=== PATIENT | male | born 1985 | race African-American/Black ===

== ENCOUNTER 2019-03-17 01:40 | Emergency (ER) | payer SELFPAY ==
[2019-03-17] MEDS ORDERED: Ketorolac Tromethamine 30 MG/ML VIAL ONE (01:51)
--- NOTE | 2019-03-17 08:11 | RAD ---
RADIOGRAPH LEFT KNEE 4 VIEWS: DATE: 03/17/2019. TIME: 2:01 a.m. HISTORY: A 33-year-old male with traumatic left knee pain. COMPARISON: None. FINDINGS: There is a transversely oriented fracture across the lower pole of the patella resulting in superior retraction of the superior fragment. The distal femur, proximal tibia, and proximal fibula demonstra te no acute fracture or dislocation. No moderate-sized or large joint effusion is identified. IMPRESSION: Acute, traumatic, very displaced fracture of the patella. POS: [facility]
== END 2019-03-17 02:17 | disposition home or self-care (01) ==
LOC: ERS 01:40
DX: S82.032A Displaced transverse fracture of left patella, initial encounter for closed fracture (principal); X50.1XXA Overexertion from prolonged static or awkward postures, initial encounter
CPT/HCPCS: 96372; J1885

== ENCOUNTER 2019-03-28 05:42 | Observation (INO) | payer SELFPAY ==
[2019-03-28] MEDS ORDERED: Midazolam HCl 2 mg/2 ml Vial ONE (06:26)
[2019-03-28] MEDS ORDERED: Fentanyl 100 MCG/2 ML VIAL ONE ×3 (06:27→09:30)
[2019-03-28] MEDS ORDERED: Dexamethasone 4 mg/ml Vial ONE (06:28)
--- NOTE | 2019-03-28 09:16 | RAD ---
Left knee 2 views: HISTORY: Fracture of the patella FINDINGS: 2 spot fluoroscopic intraoperative images of the left knee demonstrate interval reduction and interna l fixation of the distracted patellar fracture noted on the exam of 03/17/2019.
[2019-03-28] MEDS ORDERED: Acetaminophen/Codeine 30-300mg Tablet ONE (11:29)
[2019-03-28] MEDS ORDERED: Bupivacaine HCl 0.5%/Epinephrine 1:200,000/PF 30 ml Vial ONE (13:49)
[2019-03-28 14:01] VITALS: BMI 29.7
[2019-03-28] MEDS ORDERED: Lidocaine 1% PF 5 ML VIAL ONE (14:23)
[2019-03-28] MEDS ORDERED: Ondansetron PF 4 MG/2 ML Vial ONE (14:23)
[2019-03-28] MEDS ORDERED: Ketorolac Tromethamine 30 MG/ML VIAL ONE (14:23)
[2019-03-28] MEDS ORDERED: PROPOFOL 200 MG/20 ML VIAL ONE (14:23)
[2019-03-29] MEDS ORDERED: Acetaminophen/Codeine 30-300mg Tablet PO PRN (00:35)
[2019-03-29] MEDS: Acetaminophen/Codeine 30-300mg Tablet PO PRN ×2 (00:41→12:15)
[2019-03-29 11:01] VITALS: BP 137/79; TEMP 98.9
--- NOTE | 2019-04-01 09:32 | OP ---
DATE OF PROCEDURE: 03/28/2019 PREOPERATIVE DIAGNOSIS: Left patella fracture, transverse. POSTOPERATIVE DIAGNOSIS: Left patella fracture, transverse. PROCEDURES PERFORMED: Open reduction and internal fixation of left patella fracture. ANESTHESIA: General. DIRECTOR ORGANIZATIONAL: Lidya West. IMPLANTS: 3.5 mm cannulated screws x2. COMPLICATIONS: None. DRAINS: None. SPECIMEN: None. OUTCOME: Stable fixation of probable subacute patellar fracture. INDICATIONS FOR PROCEDURE: The patient is a 33-year-old gentleman, who comes into the office with a 1-week history of knee buckling and x-ray in the emergency room showing a patellar fracture. The patient reports no prior history of knee problems. He was found to have a transverse patellar fracture with wide diastasis. As such, the patient is now taken to the operating room for open reduction and internal fixation. Informed consent has been obtained and all questions answered. DESCRIPTION OF PROCEDURE: The patient was brought to the operating room and a time-out performed followed by induction of general anesthesia. Next, the limb was exsanguinated with Esmarch bandage, tourniquet inflated to 300 mmHg. A midline anterior knee incision was then made. As the knee was entered, just serous fluid came up from the knee as opposed to what was expected to be bloody fluid. With this finding, the edges of the fractures were then inspected and there were found to be what appeared to be subacute with a fibrous covering and kind of rounded over the edges of the fracture, both at the superior and inferior poles. The inferior pole although small, was one solid piece of bone. At this point, I felt as though the fracture was probably subacute and more than just 1 week old. Given the solid single inferior pole fragment, a rongeur was used to remove some of the fibrous tissue from the fracture edge. This was also done at the superior pole, bringing it down to some bleeding cancellous bone. Next, under C-arm guidance, the fracture was reduced and held in place with a bone tenaculum. At this point, we could also appreciate the probable subacute nature of the fracture due to the rounded edges of the fracture. Once felt to be appropriately aligned, two 3.5 mm cannulated screws and guidewires were passed from the inferior pole of the patella across the fracture into the superior fragment. Once appropriately positioned, measurement was taken off on these guidewires and appropriate length partially threaded cancellous screws were passed over the guidewires. Next, a tension band wire was passed up each of the two screws and then brought in a [id number] position over the top of the patella and then tensioned independently, getting good compression across the fracture line. The wires were then cut proud and bent at right angles and then final AP and lateral C-arm images were obtained and showed good apposition of the fracture ends. Tears of the medial and lateral retinaculum were then inspected and these were closed with #2 Ethibond, and then 2-0 Vicryl and cristine were used for the skin. Xeroform gauze and Pal wrap dressing were applied to the knee and then the knee was placed in a hinged knee brace, it was locked in extension. Tourniquet was let down with a total time approximately 1 hour. There were no complications. The patient tolerated the procedure well. Job ID: [id number]
== END 2019-03-29 14:23 | disposition home or self-care (01) ==
LOC: SDC 05:42 → SURG A 12:34 → EEVIPCON 12:34
PROVIDERS: ADMIT Orthopaedic Surgery; ATTEND Orthopaedic Surgery
PROC: 0QSF04Z Reposition Left Patella with Internal Fixation Device, Open Approach (ICD-10-PCS; principal; 2019-03-28)
DX: S82.032A Displaced transverse fracture of left patella, initial encounter for closed fracture (principal); W19.XXXA Unspecified fall, initial encounter
CPT/HCPCS: 76000; C1713; C1769; G0378; J0670; J0690; J1100; J1885; J2001; J2250; J2405; J2704; J3010